=== PATIENT | male | born 1990 | race Caucasian/White ===

== ENCOUNTER → 2016-10-11 | Outpatient (CLI) | payer BC ==
--- NOTE | 2016-10-11 09:26 | US ---
EXAMINATION TYPE: US scrotum with doppler. Grayscale and color Doppler Duplex imaging performed of dorcas carcamo scrotum. DATE OF EXAM: 10/11/2016 8:54 AM COMPARISON: NONE CLINICAL HISTORY: US. Left testicular pain EXAM MEASUREMENTS: TESTICLES: Right Testicle: 4.5 x 1.8 x 3.1cm cm Left Testicle: 4.9 x 2.1 x 3.5cm cm EPIDIDYMIS HEAD: Right Epididymis: 1.0cm Left Epididymis: 1.1 cm Doppler performed to assess for testicular vascularity; good bilateral color flow and waveforms are s een. There is no evidence of testicular torsion. Presence of hydroceles: no cystic areas noted bilateral epididymis, largest on right = 0.3cm and 0.3cm on the left tubular structures noted within patients area of pain (lateral/inferior to left testicle) that do no t increase with blood flow with valsalva IMPRESSION: 1. Epididymal cysts.
== END | disposition home or self-care (01) ==
LOC: RADUSWWP 08:26
PROVIDERS: ATTEND Urology
DX: N50.3 Cyst of epididymis (principal); N50.819 Testicular pain, unspecified
CPT/HCPCS: 76870; 93975